=== PATIENT | male | born 1965 | race Caucasian/White ===

== ENCOUNTER 2023-12-26 05:14 | Emergency (ER) | payer MEDICAID ==
[~2023-12-26] VITALS: Ht 170.2 cm; Wt 118.0 kg
[2023-12-26 05:24] VITALS: TEMP 98.2; O2SAT 98
[2023-12-26 07:15] VITALS: BP 151/86; PULSE 65; RESP 18
== END 2023-12-26 07:48 | disposition home or self-care (01) ==
LOC: ER 05:41
DX: K59.00 Constipation, unspecified (principal); I10 Essential (primary) hypertension
CPT/HCPCS: 99283